=== PATIENT | female | born 2005 | race Caucasian/White ===

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

== ENCOUNTER 2025-03-23 15:36 | Outpatient (REF) | payer MEDICAID, SELFPAY ==
--- NOTE | ~2025-03-23 | XR_ITS ---
EXAMINATION: XR FOOT, RIGHT CLINICAL INFORMATION: stubbed right 5th digit 4 days ago with swelling and pain of entire digit COMPARISON: None available. TECHNIQUE: AP, lateral, and oblique views of the right foot. FINDINGS: There is an intra-articular fracture involving the head of the fifth proximal phalanx extending to the medial metaphysis. There is a small gap at the articular surface.. No other abnormalities are apparent. XR/XR foot RT min 3V IMPRESSION: Acute intra-articular fracture of the head of the fifth proximal phalanx extending to the medial metaphysis. There is a 1-2 mm gap at the articular surface Electronically signed by: Scooter Samuels MD 03/23/2025 04:11 PM EDT
--- OUTSIDE RECORDS SUMMARY | 2025-03-23 15:00 | XMS_ITS | Encounter Summary ---
Author Organization [employer] Address [address] [place] [address] Care Team Providers Care Fabrication Welder Name Role Phone Shae Shania SUGGS Primary Care Provider [phone] Reason for Visit * Reason Comments Toe Pain Encounter Details Date Type Department Care Team (Late st Contact Info) Description 03/23/2025 3:00 PM EDT Office Visit [facility] [address] [place] [address] Lucia Rayo MD [address] [place] [address] Injury of toe on right foot, initial encounter (Primary Dx) Social History Tobacco Use Types Packs/Day Years Used Date Smoking Tobacco: Never Smokeless Tobacco: Never Alcohol Use Standard Drinks/Week Comments Never 0 (1 standard drink = 0.6 oz pur e alcohol) Depression Answer Date Recorded Patient Health Questionnaire-9 Score 5 12/12/2022 Housing Stability Answer Date Recorded What is your housing situation today? I have faviola brown 05/18/[address] you li ve. Do you have problems with any of the following? None of the above 05/18/2023 Food Insecurity Answer Date Recorded Within the past 12 months, y ou worried that your food would run out before you got money to buy more: Never True 05/18/2023 Within the past 12 months,th e food you bought just didn't last and you didn't have enough money to get more: Never True 12/2022 Transportation Answer Date Recorded In the past 12 months, has l ack of transportation kept you from medical appts, meetings, work or from getting things needed for daily living? No 05/18/2023 Utilities Answer Date Recorded In the past 12 months, has t he electric, gas, oil or water company threatened to shut off services in your home? No 05/18/2023 Depression Answer Date Recorded Patient Health Questionnaire-2 Score 1 12/12/2022 Comments No Sex and Gender Information Value Date Recorded Sex Assigned at Female 05/12/2022 10:20 AM EDT Legal Sex Female 10:20 AM EDT Gender Identity Female 05/12/2022 10:20 AM EDT Sexual Orientation Straight 05/12/2022 10 :20 AM EDT documented as of this encounter Last Filed Vital Signs Vital Sign Reading Time Taken Comments Blood Pressure 109/69 03/23/2025 3:15 PM EDT Pulse 78 03/23/2025 3:15 PM EDT Temperature 36.2 C (97.2 F) 03/23/2025 3:15 PM EDT Respiratory Rate 18 03/23/2025 3:15 PM EDT Oxygen Saturation 99% 03/23/2025 3:15 PM EDT Inhaled Oxygen Concentration - - Weight 69 kg (152 lb 3.2 oz) 03/23/2025 3:15 PM EDT Height - - Body Mass Index 25.33 03/17/2024 11:17 AM EDT documented in this encounter Progress Notes * Lucia Rayo MD - 03/23/2025 3:00 PM EDT Images from the original note were not included. Subjective Patient ID: Saran Gordon is a 20 y.o. female who presents to walk in clinic for tow pain. She was running around in her house playfully 4 days ago when her foot kicked a box. She had pain at the 5th toe and it has continued to be painful and unable to flex. She worked yesterday ([employer]) where she has to wear closed tow shoes. Review of Systems Constitutional: Negative for fatigue. Objective Visit Vitals BP 109/69 (BP Location: Left arm, Patient Position: Sitting, BP Cuff Size: Adult) Pulse 78 Temp 97.2 ??F (36.2 ??C) (Temporal) Resp 18 Body mass index is 25.33 kg/m??. Physical Exam Musculoskeletal: Legs: Comments: Right 5th digit with pain over digit, mind swelling, unable to flex due to swelling, no warmth. Assessment & Plan Injury of toe on right foot, initial encounter Suspect fracture vs sprain. Will obtain x ray (denies possibility of ). No dexter taping indicated given this would pull her toe out of alignment and it is well aligned on exam. Acetaminophenprn pain. Work not for 1 week given as recommend no closed shoes and ambulate only as tolerated. Advised to call if she needs note extended. She agrees with the plan. Orders: XR Foot 3+ Views Right; Future Acetaminophen 500 MG capsule; Take 1 capsule (500 mg) by mouth every 8 (eight) hours if needed for moderate pain or fever. Future Appointments Date Time Provider Department Center 03/27/2025 11:30 AM Ashley Escamilla CNM MEDICINE [facility] documented in this encounter Plan of Treatment Upcoming Encounters Date Type Department Care Team (Late st Contact Info) Description 03/27/2025 11:30 AM EDT Office Visit [facility] [address] [place] [phone] Ashley Escamilla CNM [address] [place] [address] documented as of this encounter Procedures Procedure Name Priority Date/Time Associated Diagnosis Comments XR FOOT 3+ VIEWS RIGHT Routine 03/23/2025 4:06 PM EDT Injury of toe on right foot, initial encounter documented in this encounter Results * XR Foot 3+ Views Right (03/23/2025 4:06 PM EDT) Anatomical Region Laterality Modality Lower Extremities, Foot Right [facility]iogra [facility] 03/23/2025 4:06 PM EDT Narrative 03/23/2025 4:15 PM EDT [address] [address] XRay Report Signed Patient: Saran Gordon MR#: [id number] : 2005 Acct:[id number] Age/Sex: 20 / F ADM Date: 03/23/25 [facility] Att[facility]: Lucia Rayo MD Ordering Physician: Lucia Rayo MD Date of Service: 03/23/25 Procedure(s): XR foot RT min 3V Accession Number(s): [id number] cc: Lucia Rayo MD Reason for Exam: stubbed right 5th digit 4 days ago with swelling and pain of entire digit EXAMINATION: XR FOOT, RIGHT CLINICAL INFORMATION: stubbed right 5th digit 4 days ago with swelling and pain of entire digit COMPARISON: None available. TECHNIQUE: AP, lateral, and oblique views of the right foot. FINDINGS: There is an intra-articular fracture involving the head of the fifth proximal phalanx extending to the medial metaphysis. There is a small gap at the articular surface.. No other abnormalities are apparent. XR/XR foot RT min 3V IMPRESSION: Acute intra-articular fracture of the head of the fifth proximal phalanx extending to the medial metaphysis. There is a 1-2 mm gap at the articular surface Electronically signed by: Scooter Samuels MD 03/23/2025 04:11 PM EDT Dictated By: Scooter Samuels MD Signed By: <Electronically signed by Scooter Samuels MD in OV> 03/23/25 1611 DD/ 1606 TD/TT: 03/23/25 1607 Manager Leasing: Procedure Note Donotalinterpreter, Image - 03/23/[address] [address] XRay Report Signed Patient: aSran GordonMR#: [id number] : 2005Acct:[id number] Age/Sex: 20 / FADM Date: 03/23/25 Loc: HO.[facility] Attending Dr: Lucia Rayo MD Ordering Physician: Lucia Rayo MD Date of Service: 03/23/25 Procedure(s): XR foot RT min 3V Accession Number(s): [id number] cc: Lucia Rayo MD Reason for Exam: stubbed right 5th digit 4 days ago with swelling andpain of entire digit EXAMINATION: XR FOOT, RIGHT CLINICAL INFORMATION: stubbed right 5th digit 4 days ago with swelling and pain of entire digit COMPARISON: None available. TECHNIQUE: AP, lateral, and oblique views of the right foot. FINDINGS: There is an intra-articular fracture involving the head of the fifth proximal phalanx extending to the medial metaphysis. There is a small gap at the articular surface.. No other abnormalities are apparent. XR/XR foot RT min 3V IMPRESSION: Acute intra-articular fracture of the head of the fifth proximal phalanx extending to the medial metaphysis. There is a 1-2 mm gap at the articular surface Electronically signed by: Scooter Samuels MD 03/23/2025 04:11 PM EDT RP Dictated By: Scooter Samuels MD Signed By: <Electronically signed by Scooter Samuels MD in OV> 03/23/25 1611 DD/ 1606 TD/TT: 03/23/25 1607 Manager Leasing: Lucia Rayo MD IMG XR PROCEDURES Final Re sult documented in this encounter Visit Diagnoses Diagnosis Injury of toe on right foot, initial encounter- Primary documented in this encounter Additional Health Concerns Assessment Noted Time PHQ-9 Depression Total Score: 5 12/13/19 23 1:45 PM EDT documented as of this encounter Care Teams Fabrication Welder Relationship Specialty Start Date End Date Shania Kaufman ANP [address] [place] [phone] PCP - General Family Medicine 07/19/20 documented as of this encounter
--- OUTSIDE RECORDS SUMMARY | 2025-03-23 18:43 | XMS_ITS | Encounter Summary ---
Author Organization [employer] Address [address] [facility] [address] [place] [address] Care Team Providers Care Food Editor Name Role Phone Shania Kaufman Primary Care Provider [phone] Reason for Visit * Reason Comments Med Refill Encounter Details Date Type Department Care Team ([facility] st Contact Info) Description 01/26/2025 Refill [facility] [address] [place] [address] Shania Kaufman ANP [address] [place], [place] [phone] Social History Tobacco Use Types Packs/Day Years [...] AM EDT documented as of this encounter Plan of Treatment Upcoming Encounters Date Type Department Care Team (Late st Contact Info) Description 03/27/2025 11:30 AM EDT Office Visit [facility] [address] [place] [address] Ashley Escamilla CNM [address] [place] [address] documented as of this encounter Visit Diagnoses Not on filedocumented in this encounter Additional Health Concerns Assessment Noted Time PHQ-9 Depression Total Score: 5 12/13/19 23 1:45 PM EDT documented as of this encounter Care Teams Food Editor Relationship Specialty Start Date End Date Shania Kaufman ANP [address] [place] [address] PCP - General Family Medicine 07/19/20 documented as of this encounter
--- OUTSIDE RECORDS SUMMARY | 2025-03-23 18:43 | XMS_ITS | Encounter Summary ---
Author Organization [employer] Address [address] [facility] 7[address] [place] [address] Care Team Providers Care Corn Sheller Operator Name Role Phone Shania Kaufman ES Primary Care Provider [phone] Reason for Visit * Reason Onset Date Comments Med Refill 08/11/2024 Encounter Details Date Type Department Care Team (Late st Contact Info) Description 08/11/2024 Refill [facility] [address] [place] [address] Ashley Escamilla, [facility] [address] [place], [place] [phone] Social History Tobacco Use Types Packs/Day Years [...] Description 03/27/2025 11:30 AM EDT Office Visit [facility] [address] [place] [address] Ashley Escamilla CNM [address] [place] [address] documented as of this encounter Visit Diagnoses Not on filedocumented in this encounter Additional Health Concerns Assessment Noted Time PHQ-9 Depression Total Score: 5 12/13/19 23 1:45 PM EDT documented as of this encounter Care Teams Corn Sheller Operator Relationship Specialty Start Date End Date Shania Kaufman ANP [address] [place] [phone] PCP - General Family Medicine 07/19/20 documented as of this encounter
--- OUTSIDE RECORDS SUMMARY | 2025-03-23 18:43 | XMS_ITS | Encounter Summary ---
Author Organization [employer] Address [address] [facility] 7 [place] [address] Care Team Providers Care Associate Editor Name Role Phone Ramesh Talamantes ES Primary Care Provider [phone] Reason for Referral * Imaging (Urgent) - Closed Specialty Diagnoses / Procedures Referred By Contac t Referred To Contact Radiology Diagnoses Irregular menses Procedures US Pelvis Transvaginal Ashley Sharp CNM [address] [place] [address] Phone: tel: fax: [address] Phone: tel: fax: Referral ID Status Reason Start Date Expiration Date Visits Re quested Visits Authorized [id number] Closed 08/18/2023 08/17/2024 1 1 * Imaging (Urgent) - Closed Specialty Diagnoses / Procedures Referred By Contac t Referred To Contact Radiology Diagnoses Irregular menses Procedures Us Pelvis complete Ashley Sharp CNM [address] [place] [address] Phone: tel: fax: [address] Phone: tel: fax: Referral ID Status Reason Start Date Expiration Date Visits Re quested Visits Authorized [id number] Closed 08/18/2023 08/17/2024 1 1 Encounter Details Date Type Department Care Team (Late st Contact Info) Description 08/18/2023 Orders Only [facility] [address] [place] [address] Ashley Sharp CNM [address] [place] [address] Irregular menses (Primary Dx) Social History Tobacco Use Types [...] AM EDT documented as of this encounter Miscellaneous Notes * Result Encounter Note - Ashley Sharp CNM - 08/18/2023 8:17 AM EST Please let Saran know her pelvic ultrasound showed the lining of her uterus is a little thicker/irregular than expected. When was the first day of her last period? Depending on when it was, I might want to have further testing done to evaluate the lining of her uterus. If she hasn't had a periodin a few months, I want to give some medication to bring it on (as discussed in 08/27 telephone message). Please ask if she has been sexually active since 07/2023. If so, will need test if norecent normal menses. She is welcome to make an appt with me to discuss all this further if that iseasiest. Thanks! * Result Encounter Note - Ashley Sharp CNM - 08/18/2023 8:17 AM EST Could you see if Saran has pelvic ultrasound appointment this week or last week? I don't need results from 09/10, already have that. Thanks! documented in this encounter Plan of Treatment Upcoming Encounters Date Type Department Care Team (Late st Contact Info) Description 03/27/2025 11:30 AM EDT Office Visit [facility] [address] [place] [address] Ashley Sharp CNM [address] [place] [address] Scheduled Orders Name Type Priority Associated Diagnoses Orde r Schedule Us Pelvis complete Imaging Urgent Irregular menses Expected: 08/18/2023, Expires: 08/18/2024 documented as of this encounter Procedures Procedure Name Priority Date/Time Associated Diagnosis Comments US PELVIS TRANSVAGINAL Urgent 09/11/2023 12:15 PM EST Irregular menses documented in this encounter Results * US Pelvis Transvaginal (09/11/2023 12:15 PM EST) Anatomical Region Laterality Modality Pelvis Ultrasound 09/11/2023 12:1 5 PM EST Narrative 09/11/2023 3:14 PM EST [address] [address] Ultrasound Report Signed Patient: Saran Gordon MR#: [id number] : 2005 Acct:[id number] Age/Sex: 18 / F ADM Date: 09/11/23 Loc: HO.US Attending Dr: Ashley Sharp CNM Ordering Physician: ASHLEY SHARP CNM Date of Service: 09/11/23 Procedure(s): US pelvic and transvaginal Accession Number(s): [id number] cc: ASHLEY SHARP CNM; RAMESH TALAMANTES NP EXAMINATION: US PELVIS CLINICAL INFORMATION: Irregular menses. COMPARISON: None available. TECHNIQUE: Ultrasound of the pelvis is performed using both transabdominal and transvaginal transducers along with Doppler. Transvaginal imaging is performed due to inadequate visualization transabdominally. FINDINGS: Uterus: The uterus is anteverted and measures 5.7 cm in length, 2.9 cm in AP and 3.1 cm in transverse dimension. The double wall endometrium is heterogeneous, thickened measuring 1.2 cm with small cystic areas. The uterus is smooth in contour and has normal myometrial echogenicity. No visible fibroid. There are small nabothian cysts seen in cervix. Adnexa: Both ovaries are visualized. There is normal color flow to the adnexa. There is no ovarian torsion. There is no pelvic ascites or fluid collection. Right ovary measures 3.1 x 2.1 x 2.6 cm and volume 8.9 mL. There are small follicular cysts. Left ovary measures 2.9 x 1.8 x 2.5 cm and volume 6.8 mL. There are small follicular cysts. There is small amount of free fluid in the cul-de-sac. US/US pelvic and transvaginal IMPRESSION: Unremarkable uterus except for thickened endometrium with some cystic areas. Thickened endometrium with cystic areas. Ovaries unremarkable. Small amount of free fluid in pelvis likely physiological. Dictated By: Kayode Barrera MD Signed By: <Electronically signed by Kayode Barrera MD in OV> 09/11/23 1511 DD/ 1215 TD/TT: Director Orange: BRAYDON Procedure Note Donotuseinterpreter, Image - 09/11/2023 [place] [address] Ultrasound Report Signed Patient: Saran GordonMR#: [id number] : 2005Acct:[id number] Age/Sex: 18 / FADM Date: 09/11/23 Loc: HO.US Attending Dr: Ashley Sharp CNM Ordering Physician: ASHLEY SHARP CNM Date of Service: 09/11/23 Procedure(s): US pelvic and transvaginal Accession Number(s): [id number] cc: ASHLEY SHARP CNM; RAMESH TALAMANTES NP EXAMINATION: US PELVIS CLINICAL INFORMATION: Irregular menses. COMPARISON: None available. TECHNIQUE: Ultrasound of the pelvis is performed using both transabdominal and transvaginal transducers along with Doppler. Transvaginal imaging is performed due to inadequate visualization transabdominally. FINDINGS: Uterus: The uterus is anteverted and measures 5.7 cm in length, 2.9 cm in AP and 3.1 cm in transverse dimension. The double wall endometrium is heterogeneous, thickened measuring 1.2 cm with small cystic areas. The uterus is smooth in contour and has normal myometrial echogenicity. No visible fibroid. There are small nabothian cysts seen in cervix. Adnexa: Both ovaries are visualized. There is normal color flow to the adnexa. There is no ovarian torsion. There is no pelvic ascites or fluid collection. Right ovary measures 3.1 x 2.1 x 2.6 cm and volume 8.9 mL. There are small follicular cysts. Left ovary measures 2.9 x 1.8 x 2.5 cm and volume 6.8 mL. There are small follicular cysts. There is small amount of free fluid in the cul-de-sac. US/US pelvic and transvaginal IMPRESSION: Unremarkable uterus except for thickened endometrium with some cystic areas. Thickened endometrium with cystic areas. Ovaries unremarkable. Small amount of free fluid in pelvis likely physiological. Dictated By: Kayode Barrera MD Signed By: <Electronically signed by Kayode Barrera MD in OV> 09/11/23 1511 DD/ 1215 TD/TT: Director Orange: BRAYDON us Ashley Sharp CNM IMG US PROCEDURES Final R esult documented in this encounter Visit Diagnoses Diagnosis Irregular menses- Primary Irregular menstrual cycle documented in this encounter Additional Health Concerns Assessment Noted Time PHQ-9 Depression Total Score: 5 12/13/19 23 1:45 PM EDT documented as of this encounter Care Teams Associate Editor Relationship Specialty Start Date End Date Ramesh Talamantes ANP [address] [place] [address] PCP - General Family Medicine 07/19/20 documented as of this encounter
--- OUTSIDE RECORDS SUMMARY | 2025-03-23 18:43 | XMS_ITS | Encounter Summary ---
Author Organization [employer] Address [address] [facility] [address] [place] [address] Care Team Providers Care Medical Physicist Name Role Phone Shania Kaufman ES Primary Care Provider [phone] Encounter Details Date Type Department Care Team (Latest Contact Info) Description 03/20/2025 Travel Social History Tobacco Use Types Packs/Day Years [...] Description 03/27/2025 11:30 AM EDT Office Visit [facility] [address] [place] [address] Ashley Escamilla CNM [address] [place] [address] documented as of this encounter Visit Diagnoses Not on filedocumented in this encounter Additional Health Concerns Assessment Noted Time PHQ-9 Depression Total Score: 5 12/13/19 23 1:45 PM EDT documented as of this encounter Care Teams Medical Physicist Relationship Specialty Start Date End Date Shania Kaufman ANP [address] [place] [address] PCP - General Family Medicine 07/19/20 documented as of this encounter
--- OUTSIDE RECORDS SUMMARY | 2025-03-23 18:43 | XMS_ITS | Encounter Summary ---
Author Organization [employer] Address [address] [facility] 7t [place] [address] Care Team Providers Care Administrative Support Clerk Name Role Phone Shania Kaufman ES Primary Care Provider [phone] Reason for Visit * Reason Onset Date Comments Med Refill 11/04/2024 Encounter Details Date Type Department Care Team (Late st Contact Info) Description 11/04/2024 Refill [facility] [address] [place] [address] Ashley Escamilla, [facility] [address] [place], [place] [phone] Social History Tobacco Use Types Packs/Day Years [...] Description 03/27/2025 11:30 AM EDT Office Visit [facility] [address] [place] [address] Ashley Escamilla CNM [address] [place] [address] documented as of this encounter Visit Diagnoses Not on filedocumented in this encounter Additional Health Concerns Assessment Noted Time PHQ-9 Depression Total Score: 5 12/13/19 23 1:45 PM EDT documented as of this encounter Care Teams Administrative Support Clerk Relationship Specialty Start Date End Date Shania Kaufman ANP [address] [place] [address] PCP - General Family Medicine 07/19/20 documented as of this encounter
--- OUTSIDE RECORDS SUMMARY | 2025-03-23 18:43 | XMS_ITS | Clinical Summary ---
Author Organization [employer] Address [address] [facility] [address] [place] [address] Care Team Providers Care Brush Washer Name Role Phone Shania Kaufman Primary Care Provider [phone] Allergies Active Allergy Reactions Criticality Noted Date Comments Pollen Extract 08/12/2023 Medications cromolyn (Opticrom) 4 % ophthalmic solution PLACE 1 DROP INTO THE AFFECTED EYE(S) FOUR TIMES DAILY 06/16/20 22 Active cetirizine (ZyrTEC) 10 MG tablet Take 1 tablet (10 mg) by mouth Once per day. 90 tablet 1 11/17/19 24 Active Slynd 4 MG tablet TAKE 1 TABLET BY MOUTH ONCE DAILY 84 tablet 01/21/20 25 Active Acetaminophen 500 MG capsuleIndicati ons:Injury of toe on right foot, initial encounter Take 1 capsule (500 mg) by mouth every 8 (eight) hours if needed for moderate pain or fever. 30 capsule 03/23/20 25 025 Active ofloxacin (Floxin) 0.3 % otic solutionIndicat ions:Otitis externa, unspecified chronicity, unspecified laterality, unspecified type 5 drops to R ear canal BID x 7 days 10 mL 02/23/20 24 025 Discontinued Active Problems Problem Noted Date Diagnosed Date Sleep difficulties 09/15/2022 Behavior concern 07/22/2016 Eczema 07/22/2016 Asthma 11/22/2012 Seasonal allergic rhinitis 08/23/2012 Encounters Date Type Department Care Team Description 03/23/2025 3:00 PM EDT Office Visit [facility] [address] [place] [address] Lucia Rayo MD Injury of toe on right foot, initial encounter (Primary Dx) 03/23/2025 Travel 03/20/2025 Travel 01/26/2025 Telephone [facility] [address] [place] [address] Shania Kaufman ANP Results 01/26/2025 Refill [facility] [address] [place] [address] Shania Kaufman ANP 01/23/2025 Telephone [facility] [address] [place] [address] Ashley Escamilla CNM Appointment Request 01/20/2025 Refill [facility] [address] [place] [address] Ashley Escamilla CNM from Last 3 Months Immunizations Immunization Administration Dates Next Due DTP 09/22/2007, 7,01/15/2006,08/07 DTaP 11/22/2009 HPV 9-Valent 03/24/2017,07/22/2016 Hep A, ped/adol, 2 dose 03/22/2008,09/22/2007 Hep B, Adolescent or Pediatric 09/16/2006,2005,2005 Hib (HbOC) 09/22/2007,01/15/2007,09/11/2006 IPV 11/22/2009, 7,01/15/2006,08/07 Influenza injectable quadriv alent preservative free 04/11/2022,04/11/2022,07/23/2020,07/22,07/20/2015,05/31/2014 Influenza, IIV3, injectable 03/23/2011 Influenza, Split (incl. cherri fied surface antigen) 04/07/2013 MMR 11/22/2009,09/11/2006 Meningococcal MCV4P [id number]-135 07/22/2016 Pfizer Covid-19 Vaccine 12+ 04/23/2021, Pneumococcal Conjugate PCV 7 09/11/2006,01/16/20 06 Tdap 07/22/2016 Varicella 11/22/2009,09/11/2006 Social History Tobacco Use Types Packs/Day Years Used Date Smoking Tobacco: Never Smokeless Tobacco: Never Tobacco Cessation:Counseling Given: Not Answered Alcohol Use Standard Drinks/Week Comments Never 0 [...] Orientation Straight 05/12/2022 10 :20 AM EDT Last Filed Vital Signs Vital Sign Reading Time Taken Comments Blood Pressure 109/69 03/23/2025 3:15 PM EDT Pulse 78 03/23/2025 3:15 PM EDT Temperature 36.2 C (97.2 F) 03/23/2025 3:15 PM EDT Respiratory Rate 18 03/23/2025 3:15 PM EDT Oxygen Saturation 99% 03/23/2025 3:15 PM EDT Inhaled Oxygen Concentration - - Weight 69 kg (152 lb 3.2 oz) 03/23/2025 3:15 PM EDT Height 165.1 cm (5' 5 ) 03/17/2024 11:17 AM EDT Body Mass Index 25.33 03/17/2024 11:17 AM EDT Plan of Treatment Upcoming Encounters Date Type Department Care Team (Late st Contact Info) Description 03/27/2025 11:30 AM EDT Office Visit [facility] [address] [place] [address] FrancineAshley, CNM [address] [place] [address] Health Maintenance Due Date Last Done Comments Chlamydia and Gonorrhea Screening 2005 HIV Screening 2005 Alcohol/Substance Use Screening 2017 Family Planning (PISQ) 02/26/2020 Meningococcal B Vaccine (1 of 2 - Standard) 2021 Hepatitis C Screening 2023 Depression Screening 12/13/2023 12/12/2022, 12/13/19 23 SDOH Screening 12/13/2023 12/12/2022 Pneumococcal Vaccine: Pediatrics (0 to 5 Years) and At-Risk Patients (6 to 49) Years (1 of 2 - PCV) 02/26/2024 09/11/2006, 01/15/2006 COVID-19 Vaccine (3 - season) 2025 04/23/2021, 04/02/2021 Influenza Vaccine (#1) 2025 , 04/11/2022, 07/23/2020, Additional history exists Tobacco Screening 03/17/2025 03/17/2024 Disability Screening 03/20/2026 03/20/2025 DTaP/Tdap/Td Vaccines (7 - Td or Tdap) 07/22/2026 07/22/2016, 11/22/2009, 09/22/2007, Additional history exists Zoster Vaccines (1 of 2) 2055 RSV Patients and Patients Aged 60 years or older (1 - 1-dose 75+ series) 02/26/2080 Hepatitis B Vaccines Completed 09/16/2006, 01/15/2006, 2005 HIB Vaccines Completed 09/22/2007, 12/2006, 09/11/2006 Hepatitis A Vaccines Completed 03/22/2008, 09/22/19 08 IPV Vaccines Completed 11/22/2009, 08/2006, 01/15/2006, Additional history exists Meningococcal Vaccine Aged Out 07/22/2016 No rosa emilio eligible based on patient's age to complete this topic HPV Vaccines Completed 03/24/2017, 07/22/2016 RSV under 20 months Aged Out No longe r eligible based on patient's age to complete this topic Rotavirus Vaccines Aged Out No longer eligible based on patient's age to complete this topic Procedures Procedure Name Priority Date/Time Associated Diagnosis Comments XR FOOT 3+ VIEWS RIGHT Routine 03/23/2025 4:06 PM EDT Injury of toe on right foot, initial encounter from Last 3 Months Results * XR Foot 3+ Views Right (03/23/2025 4:06 PM EDT) Anatomical Region Laterality Modality Lower Extremities, Foot Right Radiogra phic Imaging 03/23/2025 4:06 PM EDT Narrative 03/23/2025 4:15 PM EDT [address] [address] XRay Report Signed Patient: Saran Gordon MR#: [id number] : 2005 Acct:[id number] Age/Sex: 20 / F ADM Date: 03/23/25 Loc: HO.HHCX Attending Dr: Lucia Rayo MD Ordering Physician: Lucia Rayo MD Date of Service: 03/23/25 Procedure(s): XR foot RT min 3V Accession Number(s): [id number] cc: Lucia Rayo MD Reason for Exam: [...] 03/23/25 1611 DD/ 1606 TD/TT: 03/23/25 1607 Coding Consultant: Procedure Note Donotuseinterpreter, Image - 03/23/[address] [address] XRay Report Signed Patient: Saran GordonMR#: [id number] : 2005Acct:[id number] Age/Sex: 20 FADM Date: 03/23/25 Loc: HO.HHCX Attending Dr: Lucia Rayo MD Ordering Physician: Lucia Rayo MD Date of Service: 03/23/25 Procedure(s): XR foot RT min 3V Accession Number(s): [id number] cc: Lucia Rayo MD Reason for Exam: [...] 03/23/25 1611 DD/ 1606 TD/TT: 03/23/25 1607 Coding Consultant: Lucia Rayo MD IMG XR PROCEDURES Final Re sult from Last 3 Months Insurance [email or web address] [facility] Care Teams Brush Washer Relationship Specialty Start Date End Date Shania Kaufman ANP [address] [place] [address] PCP - General Family Medicine 07/19/20
--- OUTSIDE RECORDS SUMMARY | 2025-03-23 18:43 | XMS_ITS | Encounter Summary ---
Author Organization [employer] Address [address] [facility] 7t [place] [address] Care Team Providers Care Party Supply Specialist Name Role Phone Shania Kaufman ES Primary Care Provider [phone] Reason for Visit * Reason Onset Date Comments Med Refill 04/19/2024 Encounter Details Date Type Department Care Team (Late st Contact Info) Description 04/19/2024 Refill [facility] [address] [place] [address] Ashley Escamilla, RAFAEL [address] [place], [place] [phone] Social History Tobacco Use Types Packs/Day Years [...] Description 03/27/2025 11:30 AM EDT Office Visit [facility] [address] [place] [address] Ashley Escamilla CNM [address] [place] [address] documented as of this encounter Visit Diagnoses Not on filedocumented in this encounter Additional Health Concerns Assessment Noted Time PHQ-9 Depression Total Score: 5 12/13/19 23 1:45 PM EDT documented as of this encounter Care Teams Party Supply Specialist Relationship Specialty Start Date End Date Shania Kaufman ANP [address] [place] [address] PCP - General Family Medicine 07/19/20 documented as of this encounter
--- OUTSIDE RECORDS SUMMARY | 2025-03-23 18:43 | XMS_ITS | Encounter Summary ---
Author Organization [employer] Address [address] [facility] [address] [place] [address] Care Team Providers Care Air Surveillance Operator Name Role Phone Shania Kaufman ES Primary Care Provider [phone] Encounter Details Date Type Department Care Team (Latest Contact Info) Description 03/23/2025 Travel Social History Tobacco Use Types Packs/Day [...] Description 03/27/2025 11:30 AM EDT Office Visit [facility] [address] [place] [address] Ashley Escamilla CNM [address] [place] [address] documented as of this encounter Visit Diagnoses Not on filedocumented in this encounter Additional Health Concerns Assessment Noted Time PHQ-9 Depression Total Score: 5 12/13/19 23 1:45 PM EDT documented as of this encounter Care Teams Air Surveillance Operator Relationship Specialty Start Date End Date Shania Kaufman ANP [address] [place] [address] PCP - General Family Medicine 07/19/20 documented as of this encounter
--- OUTSIDE RECORDS SUMMARY | 2025-03-23 18:43 | XMS_ITS | Encounter Summary ---
Author Organization [employer] Address [address] [facility] 7t [place] [address] Care Team Providers Care Daycare Director Name Role Phone Shania Kaufman ES Primary Care Provider [phone] Reason for Visit * Reason Onset Date Comments Med Refill 05/17/2024 Encounter Details Date Type Department Care Team (Late st Contact Info) Description 05/17/2024 Refill [facility] [address] [place] [address] Ashley Escamilla, RAFAEL [address] [place], [place] [phone] Social History Tobacco Use Types Packs/Day Years [...] Description 03/27/2025 11:30 AM EDT Office Visit [facility] [address] [place] [address] Ashley Escamilla CNM [address] [place] [address] documented as of this encounter Visit Diagnoses Not on filedocumented in this encounter Additional Health Concerns Assessment Noted Time PHQ-9 Depression Total Score: 5 12/13/19 23 1:45 PM EDT documented as of this encounter Care Teams Daycare Director Relationship Specialty Start Date End Date Shania Kaufman ANP [address] [place] [address] PCP - General Family Medicine 07/19/20 documented as of this encounter
== END 2025-03-23 15:37 | disposition home or self-care (01) ==
LOC: HO.HHCX 15:36
PROVIDERS: Visit Provider Family Medicine
DX: S99.921A Unspecified injury of right foot, initial encounter (principal)
CPT/HCPCS: 73630

== ENCOUNTER → 2025-03-23 15:37 | Outpatient (BNV) | payer MEDICAID, SELFPAY | PROVIDERS: Visit Provider Radiology Diagnostic Radiology | DX: S92.511A Displaced fracture of proximal phalanx of right lesser toe(s), initial encounter for closed fracture (principal) | CPT/HCPCS: 73630 ==

== ENCOUNTER 2025-03-27 17:45 | Outpatient (REF) | payer MEDICAID, SELFPAY ==
--- OUTSIDE RECORDS SUMMARY | 2025-03-23 15:00 | XMS_ITS | Encounter Summary ---
Author Organization [employer] Address [address] [place] [address] Care Team Providers Care Supervisor Broadloom Name Role Phone Shae Shania SUGGS Primary Care Provider [phone] Reason for Referral * Consultation (STAT) - Authorized Specialty Diagnoses / Procedures Referred By Contac t Referred To Contact Orthopaedic Surgery Diagnoses Closed fracture of proximal phalanx of lesser toe of right foot, physeal involvement unspecified, initial encounter Lucia Young MD [address] [place] [address] Phone: tel: fax: [facility] [address] [place] [address] Phone: tel: Referral ID Status Reason Start Date Expiration Date Visits Requested Visits Authorized [id number] Authorized Specialty Services Required 03/24/2025 03/24/2026 6 6 Reason for Visit * Reason Comments Toe Pain Encounter Details Date Type Department Care Team (Late st Contact Info) Description 03/23/2025 3:00 PM EDT Office Visit [facility] [address] [place] [phone] Lucia Young MD [address] [place] [phone] Closed fracture of proximal phalanx of lesser toe of right foot, physeal involvement unspecified, initial encounter (Primary Dx); Injury of toe on right foot, initial encounter Social History Tobacco Use Types Packs/Day Years [...] in this encounter Progress Notes * Lucia Young MD - 03/23/2025 3:00 PM EDT Images [...] and unable to flex. She worked yesterday ([employer]) where she has to wear closed tow [...] if needed for moderate pain or fever. Closed fracture of proximal phalanx of lesser toe of right foot, physeal involvement unspecified, initial encounter Orders: Referral to Orthopaedic Surgery; Future Addendum XR/XR foot RT min 3V IMPRESSION: Acute intra-articular fracture of the head of the fifth proximal phalanx extending to the medial metaphysis. There is a 1-2 mm gap at the articular surface Referral to ortho placed 03/24/25 Future Appointments Date Time Provider Department Center 03/27/2025 11:30 AM Ashley Escamilla CNM MEDICINE [facility] documented in this encounter Miscellaneous Notes * Addendum Note - Lucia Young MD - 03/23/2025 3:00 PM EDTAddended by: LUCIA YOUNG on: 03/24/2025 11:18 AM Modules accepted: Orders documented in this encounter Plan of Treatment Scheduled Referrals Name Type Priority Associated Diagnoses Orde r Schedule Referral to Orthopaedic Surgery Outpatient Referral STAT Closed fracture of proximal phalanx of lesser toe of right foot, physeal involvement unspecified, initial encounter Expected: 03/24/2025 (Approximate), Expires: 03/24/2026 documented as of this encounter Procedures Procedure Name Priority Date/Time Associated Diagnosis Comments XR FOOT 3+ VIEWS RIGHT Routine 03/23/2025 4:06 PM EDT Injury of toe on right foot, initial encounter documented in this encounter Results * XR Foot 3+ Views Right (03/23/2025 4:06 PM EDT) Anatomical Region Laterality Modality Lower Extremities, Foot Right Radiogra phic Imaging 03/23/2025 4:06 PM EDT Narrative 03/23/2025 4:15 [place] [address] XRay Report Signed Patient: Saran Gordon MR#: [id number] : 2005 Acct:[id number] Age/Sex: 20 / F ADM Date: 03/23/25 [facility]: Lucia Young MD Ordering Physician: Lucia Young MD Date of Service: 03/23/25 Procedure(s): XR foot RT min 3V Accession Number(s): [id number] cc: Lucia Young MD Reason for Exam: stubbed right 5th [...] 03/23/25 1611 DD/ 1606 TD/TT: 03/23/25 1607 Bulk Plant Agent: Procedure Note Donotuseinterpreter, Image - 03/23/[address] [address] XRay Report Signed Patient: Saran GordonMR#: [id number] : 2005Acct:[id number] Age/Sex: 20 / FADM Date: 03/23/25 Loc: HO.[facility] Attending Dr: Lucia Young MD Ordering Physician: Lucia Young MD Date of Service: 03/23/25 Procedure(s): XR foot RT min 3V Accession Number(s): [id number] cc: Lucia Young MD Reason for Exam: stubbed right 5th [...] 03/23/25 1611 DD/ 1606 TD/TT: 03/23/25 1607 Bulk Plant Agent: Lucia Young MD IMG XR PROCEDURES Final Re sult documented in this encounter Visit Diagnoses Diagnosis Closed fracture of proximal phalanx of lesser toe of right foot, physeal involvement unspecified, initial encounter- Primary Injury of toe on right foot, initial encounter documented in this encounter Additional Health Concerns Assessment Noted Time PHQ-9 Depression Total Score: 5 12/13/19 23 1:45 PM EDT documented as of this encounter Care Teams Supervisor Broadloom Relationship Specialty Start Date End Date Shania Kaufman ANP [address] [place] [address] PCP - General Family Medicine 07/19/20 documented as of this encounter
--- OUTSIDE RECORDS SUMMARY | 2025-03-27 11:30 | XMS_ITS | Encounter Summary ---
Author Organization [employer] Address [address] [facility] [address] [place] [address] Care Team Providers Care Resolution Manager Name Role Phone Shania Kaufman ES Primary Care Provider [phone] Reason for Visit * Reason Comments Follow-up Encounter Details Date Type Department Care Team (Latest Contact Info) Description 03/27/2025 11:30 AM EDT Office Visit [facility] MED[facility]INE [address] [place] [address] Ashley Escamilla CN [address] [place], [place] [phone] Surveillance of previously prescribed contraceptive pill (Primary Dx); Encntr screen for infections w sexl mode of transmiss Social History Tobacco Use Types Packs/Day Years Used Date Smoking Tobacco: Never Smokeless Tobacco: Never Alcohol Use Standard Drinks/Week Comments Never 0 (1 standard drink = 0.6 oz pur e alcohol) Depression Answer Date Recorded Patient Health Questionnaire-9 Score 9 03/27/2025 Patient Health Questionnaire-9 Score 9 03/27/2025 Last PHQ-9: Questionnaire Data Not on file 0 03/27/2025 Housing Stability Answer Date Recorded What is your housing situation today? I have faviola brown 03/27/[address] you li ve. Do you have problems with any of the following? Mold 03/27/2025 Food Insecurity Answer Date Recorded Within the past 12 months, y ou worried that your food would run out before you got money to buy more: Sometimes True 2024 Within the past 12 months,th e food you bought just didn't last and you didn't have enough money to get more: Sometimes True 03/27/2025 Transportation Answer Date Recorded In the past 12 months, has l ack of transportation kept you from medical appts, meetings, work or from getting things needed for daily living? No 03/27/2025 Utilities Answer Date Recorded In the past 12 months, has t he electric, gas, oil or water company threatened to shut off services in your home? No 03/27/2025 Depression Answer Date Recorded Patient Health Questionnaire-2 Score 2 03/27/2025 Internet Access Answer Date Recorded Internet Access Q1 Yes 03/27/2025 Internet Access Q2 Not on file 03/27/2025 Comments No Intention Date Recorded No desire to become (finding) 0 03/27/2025 Sex and Gender Information Value Date Recorded Sex Assigned at Female 05/12/2022 10:20 AM EDT Legal Sex Female 10:20 AM EDT Gender Identity Female 05/12/2022 10:20 AM EDT Sexual Orientation Straight 05/12/2022 10 :20 AM EDT documented as of this encounter Last Filed Vital Signs Vital Sign Reading Time Taken Comments Blood Pressure 112/78 03/27/2025 11:16 AM EDT Pulse 105 03/27/2025 11:16 AM EDT Temperature 36.9 C (98.4 F) 03/27/2025 11:16 AM EDT Respiratory Rate 12 03/27/2025 11:16 AM EDT Oxygen Saturation 98% 03/27/2025 11:16 AM EDT Inhaled Oxygen Concentration - - Weight 68.7 kg (151 lb 6.4 oz) 03/27/2025 11:16 AM EDT Height - - Body Mass Index 25.19 03/17/2024 11:17 AM EDT documented in this encounter Functional Status * Over the past 2 weeks, how often have you been bothered by any of the following problems? Question Answer Date of Assessment Author Patient Health Questionnaire -2 Score 2 03/27/2025 12:00 PM EDT Shireen Martinez MA * Little interest or pleasure in doing things Answer Date of Assessment Author More than half the days 03/27/2025 12:00 PM EDT Shireen Martinez MA * Feeling down, depressed, or hopeless Answer Date of Assessment Author Not at all 03/27/2025 12:00 PM EDT Shireen Martinez MA * Trouble falling or staying asleep, or sleeping too much Answer Date of Assessment Author More than half the days 03/27/2025 12:00 PM EDT Shireen Martinez MA * Feeling tired or having little energy Answer Date of Assessment Author Several days 03/27/2025 12:00 PM EDT Shireen Martinez MA * Poor appetite or overeating Answer Date of Assessment Author Nearly every day 03/27/2025 12:00 PM EDT Shireen Martinez MA * Feeling bad about yourself - or that you are a failure or have let yourself or your family down Answer Date of Assessment Author Several days 03/27/2025 12:00 PM EDShireen Ellison MA * Trouble concentrating on things, such as reading the newspaper or watching television Answer Date of Assessment Author Not at all 03/27/2025 12:00 PM EDT Shieren Martinez MA * Moving or speaking so slowly that other people could have noticed? Or the opposite - being so fidgety or restless that you have been moving around a lot more than usual. Answer Date of Assessment Author Not at all 03/27/2025 12:00 PM Shireen Alvarado MA * Thoughts that you would be better off or hurting yourself in some way Answer Date of Assessment Author Not at all 03/27/2025 12:00 PM Shireen Alvaraod MA * Patient Health Questionnaire-9 Score Answer Date of Assessment Author 9 03/27/2025 12:00 PM EDT Shireen Martinez MA * How difficult have these problems made it for you to do your work, take care of things at home, or get along with other people? Answer Date of Assessment Author Somewhat difficult 03/27/2025 12:00 PM Shireen Hill MA * Over the last 2 weeks, how often have you been bothered by any of the following problems? Question Answer Date of Assessment Author Feeling nervous, anxious, or on edge 0 03/27/2025 12:03 PM EDShireen Ellison MA Not being able to stop or co ntrol worrying 1 03/27/2025 12:03 PM EDT Shireen Martinez MA Worrying too much about diff erent things 1 03/27/2025 12:03 PM EDT Shireen Martinez MA Trouble relaxing 0 03/27/2025 12:03 PM EDT Shireen Martinez MA Being so restless that it is hard to sit still 0 03/27/2025 12:03 PM EDT Shireen Martinez MA Becoming easily annoyed or irritable 1 03/27/2025 12:03 PM EDT Shireen Martinez MA Feeling afraid as if somethi ng awful might happen 0 03/27/2025 12:03 PM EDT Shireen Martinez MA MONIE-7 Total Score 3 03/27/2025 12:03 PM EDT Shireen Martinez MA documented as of this encounter Progress Notes * Ashley Escamilla, DEBORA - 03/27/2025 11:30 AM EDT Subjective Patient ID: Saran Gordon is a 20 y.o. female who presents for oral contraceptive pill f/u Slynd rx'd 12/2023. Happy with method. Monthly menses x 2-4d. No heavy flow or bothersome camping. AMAB partner x few months, would like urine based STI testing. Nervous about bloodwork. Previous labs -elevated testosterone, normal TSH/Prl/estradiol and FSH. Positive Provera challenge 09/2023. Pelvic ultrasound showed no obvious uterine/ovarian pathology, EM thickness consistent with phase of menstrual cycle. Review of Systems Eyes: Negative for visual disturbance. Respiratory: Negative for shortness of breath. Cardiovascular: Negative for chest pain and leg swelling. Skin: Negative for color change. Neurological: Negative for headaches. Objective BP 112/78 (BP Location: Left arm, Patient Position: Sitting, BP Cuff Size: Adult) Pulse 105 Temp 98.4 ??F (36.9 ??C) (Oral) Resp 12 Wt 151 lb 6.4 oz (68.7 kg) LMP 03/26/2025 SpO2 98% BMI 25.19 kg/m?? Physical Exam Constitutional: Appearance: Normal appearance. Neurological: Mental Status: She is alert. Psychiatric: Mood and Affect: Mood normal. Behavior: Behavior normal. Assessment/Plan Diagnoses and all orders for this visit: Surveillance of previously prescribed contraceptive pill Happy with Slynd. Refills sent in. Side effects and danger signs reviewed. Followup 1 year if all well, will do pap then. Knows she can call any time for appointment before then if concerns. Encntr screen for infections w sexl mode of transmiss - Chlamydia/N. Gonorrhoeae, PCR, Urine - Trichomonas RNA (Urine/Vaginal) - Syphilis Screen; Future - HIV-1/2 Antigen and Antibodies, Fourth Generation, with Reflexes; Future - Hepatitis C Antibody with Reflex to HCV, RNA, Quantitative, Real-Time PCR; Future - Hepatitis B surface antigen, EIA; Future - Hepatitis B Surface Antibody, Qualitative; Future - Hepatitis B Core Antibody, Total; Future Urine Gonorrhea/Chlamydia/trichomonas sent. Reviewed tips to make blood draw easy. Eat a meal and drink plenty of water beforehand, let hand tube bender know she is nervous, may have reclining chair which can help. Other orders - Drospirenone (Slynd) 4 MG tablet; Take 1 tablet by mouth Once per day. documented in this encounter Plan of Treatment Scheduled Orders Name Type Priority Associated Diagnoses Orde r Schedule Trichomonas RNA (Urine/Vaginal) Lab Routine Encntr screen for infections w sexl mode of transmiss Ordered: 03/27/2025 Syphilis Screen Lab Routine Encntr screen for infections w sexl mode of transmiss Expected: 03/27/2025 (Approximate), Expires: 03/27/2026 HIV-1/2 Antigen and Antibodies, Fourth Generation, with Reflexes Lab Routine Encntr screen for infections w sexl mode of transmiss Expected: 03/27/2025 (Approximate), Expires: 03/27/2026 Hepatitis C Antibody with Reflex to HCV, RNA, Quantitative, Real-Time PCR Lab Routine Encntr screen for infections w sexl mode of transmiss Expected: 03/27/2025 (Approximate), Expires: 03/27/2026 Hepatitis B surface antigen, EIA Lab Routine Encntr screen for infections w sexl mode of transmiss Expected: 03/27/2025 (Approximate), Expires: 03/27/2026 Hepatitis B Surface Antibody, Qualitative Lab Routine Encntr screen for infections w sexl mode of transmiss Expected: 03/27/2025 (Approximate), Expires: 03/27/2026 Hepatitis B Core Antibody, Total Lab Routine Encntr screen for infections w sexl mode of transmiss Expected: 03/27/2025 (Approximate), Expires: 03/27/2026 documented as of this encounter Procedures Procedure Name Priority Date/Time Associated Diagnosis Comments CHLAMYDIA/TRICHOMON /NEISSERIA GONORRHOEAE, PCR, URINE Routine 03/27/2025 12:00 PM EDT Encntr screen for infections w sexl mode of transmiss documented in this encounter Results * Chlamydia/N. Gonorrhoeae, PCR, Urine (03/27/2025 12:00 PM EDT) CT PCR, Urine NOT DETECTED Not Detect. LABS Comment:A not detected test result does not exclude the possibilityof infection because test results can be affected byimproper specimen collection, concurrent antibiotic therapy,or the number of organisms in the specimen which may bebelow the sensitivity of the test. As with many diagnostictests, results from the Xpert CT/NG assay should beinterpreted in conjunction with other laboratory andclinical data available to the clinician.The Xpert CT/NG assay should not be used for the evaluationof suspected sexual abuse or for other medico-legalindications. Additional testing is recommended in anycircumstance when false positive or false negative resultscould lead to adverse medical, social or psychologicalconsequences. NG PCR, Urine NOT DETECTED Not Detect. LABS Comment:A not detected test result does not exclude the possibilityof infection because test results can be affected byimproper specimen collection, concurrent antibiotic therapy,or the number of organisms in the specimen which may bebelow the sensitivity of the test. As with many diagnostictests, results from the Xpert CT/NG assay should beinterpreted in conjunction with other laboratory andclinical data available to the clinician.The Xpert CT/NG assay should not be used for the evaluationof suspected sexual abuse or for other medico-legalindications. Additional testing is recommended in anycircumstance when false positive or false negative resultscould lead to adverse medical, social or psychologicalconsequences. Urine (Urine, Random) 03/27/2025 12:00 PM EDT 03/27/2025 5:46 PM EDT us Ashley Escamilla CNM LAB URINE ORDERABLES Krista dean Result Performing Organization Address City/State/[facility] Co de Phone Number LABS [address] [place] [address] [phone] documented in this encounter Visit Diagnoses Diagnosis Surveillance of previously prescribed contraceptive pill- Primary Encntr screen for infections w sexl mode of transmiss documented in this encounter Additional Health Concerns Assessment Noted Time PHQ-9 Depression Total Score: 9 03/27/20 25 12:00 PM EDT documented as of this encounter Care Teams Resolution Manager Relationship Specialty Start Date End Date Shania Kaufman ANP [address] [place] [id number] PCP - General Family Medicine 07/19/20 documented as of this encounter
[2025-03-27 20:39] LABS: CT PCR Urine NOT DETECTED (Not Detect.); NG PCR Urine NOT DETECTED (Not Detect.)
--- OUTSIDE RECORDS SUMMARY | 2025-03-27 21:45 | XMS_ITS | Encounter Summary ---
Author Organization [employer] Address [address] 7[address] [place] [address] Care Team Providers Care Graduate School Dean Name Role Phone Shae Shania SUGGS Primary Care Provider [phone] Reason for Visit * Reason Onset Date Comments Med Refill 04/19/2024 Encounter Details Date Type Department Care Team (Late st Contact Info) Description 04/19/2024 Refill [facility]INE [address] [place] [address] Ashley Escamilla CN [address] [place] [address] Social History Tobacco Use Types Packs/Day Years [...] as of this encounter Plan of Treatment Not on file documented as of this encounter Visit Diagnoses Not on filedocumented in this encounter Additional Health Concerns Assessment Noted Time PHQ-9 Depression Total Score: 5 12/13/19 23 1:45 PM EDT documented as of this encounter Care Teams Graduate School Dean Relationship Specialty Start Date End Date Shania Kaufman ANP [address] [place] [phone] PCP - General Family Medicine 07/19/20 documented as of this encounter
--- OUTSIDE RECORDS SUMMARY | 2025-03-27 21:45 | XMS_ITS | Encounter Summary ---
Author Organization [employer] Address [address] [place] [address] Care Team Providers Care Armature Winder Repair Name Role Phone Shania Kaufman ES Primary Care Provider [phone] Reason for Visit * Reason Onset Date Comments Med Refill 11/04/2024 Encounter Details Date Type Department Care Team (Late st Contact Info) Description 11/04/2024 Refill [facility] [address] [place] [address] Ashley Escamilla CN [address] [place] [address] Social History Tobacco Use Types Packs/Day Years [...] documented as of this encounter Care Teams Armature Winder Repair Relationship Specialty Start Date End Date Shania Kaufman ANP [address] [place] [phone] PCP - General Family Medicine 07/19/20 documented as of this encounter
--- OUTSIDE RECORDS SUMMARY | 2025-03-27 21:45 | XMS_ITS | Encounter Summary ---
Author Organization [employer] Address [address] 7[address] [place] [address] Care Team Providers Care Basic Sciences Professor Name Role Phone Shania Kaufman ES Primary Care Provider [phone] Reason for Visit * Reason Onset Date Comments Med Refill 08/11/2024 Encounter Details Date Type Department Care Team (Late st Contact Info) Description 08/11/2024 Refill [facility] MEDICINE [address] [place] [address] Ashley Escamilla CN [address] [place] [address] Social History Tobacco Use Types Packs/Day Years [...] documented as of this encounter Care Teams Basic Sciences Professor Relationship Specialty Start Date End Date Shania Kaufman ANP [address] [place] [phone] PCP - General Family Medicine 07/19/20 documented as of this encounter
--- OUTSIDE RECORDS SUMMARY | 2025-03-27 21:45 | XMS_ITS | Encounter Summary ---
Author Organization [employer] Address [address] [facility] 7[address] [place] [address] Care Team Providers Care Market Research Associate Name Role Phone Ramesh Talamantes ES Primary Care Provider [phone] Reason for Referral * Imaging (Urgent) - Closed Specialty Diagnoses / Procedures Referred By Contac t Referred To Contact Radiology Diagnoses Irregular menses Procedures US Pelvis Transvaginal Aicha Sharp CNM [address] [place] [address] Phone: tel: fax: [address] Phone: tel: fax: Referral ID Status Reason Start Date Expiration Date Visits Re quested Visits Authorized [id number] Closed 08/18/2023 08/17/2024 1 1 * Imaging (Urgent) - Closed Specialty Diagnoses / Procedures Referred By Contac t Referred To Contact Radiology Diagnoses Irregular menses Procedures Us Pelvis complete Aicha Sharp CNM [address] [place] [address] Phone: tel: fax: [address] Phone: tel: fax: Referral ID Status Reason Start Date Expiration Date Visits Re quested Visits Authorized [id number] Closed 08/18/2023 08/17/2024 1 1 Encounter Details Date Type Department Care Team (Late st Contact Info) Description 08/18/2023 Orders Only [facility] MEDICINE [address] [place] [address] Aicha Sharp CNM [address] [place] [address] Irregular menses (Primary Dx) Social History Tobacco [...] Miscellaneous Notes * Result Encounter Note - Aicha Sharp CNM - 08/18/2023 8:17 AM EST [...] iseasiest. Thanks! * Result Encounter Note - Aicha Sharp CNM - 08/18/2023 8:17 AM EST [...] PM EST Narrative 09/11/2023 3:14 PM EST [address] [address] Ultrasound Report Signed Patient: Saran Gordon MR#: [id number] : 2005 Acct:[id number] Age/Sex: 18 / F ADM Date: 09/11/23 Loc: HO.US Attending Dr: Aicha Sharp CNM Ordering Physician: AICHA SHARP CNM Date of Service: 09/11/23 Procedure(s): US pelvic and transvaginal Accession Number(s): [id number] cc: AICHA SHARP CNM; RAMESH TALAMANTES NP EXAMINATION: US [...] in OV> 09/11/23 1511 DD/ 1215 TD/TT: Registered Mail Clerk: [facility] Procedure Note Donotuseinterpreter, Image - 09/11/[address] [address] Ultrasound Report Signed Patient: Saran GordonMR#: [id number] : 2005Acct:[id number] Age/Sex: 18 / FADM Date: 09/11/23 Loc: .US Attending Dr: Aicha Sharp CNM Ordering Physician: AICHA SHARP CNM Date of Service: 09/11/23 Procedure(s): US pelvic and transvaginal Accession Number(s): [id number] cc: AICHA SHARP CNM; RAMESH TALAMANTES NP EXAMINATION: US [...] in OV> 09/11/23 1511 DD/ 1215 TD/TT: Registered Mail Clerk: [facility] us Aicha Sharp CNM IMG US PROCEDURES Final R esult documented in this encounter Visit Diagnoses Diagnosis Irregular menses- Primary Irregular menstrual cycle documented in this encounter Additional Health Concerns Assessment Noted Time PHQ-9 Depression Total Score: 5 12/13/19 23 1:45 PM EDT documented as of this encounter Care Teams Market Research Associate Relationship Specialty Start Date End Date Ramesh Talamantes ANP [address] [place] [address] PCP - General Family Medicine 07/19/20 documented as of this encounter
--- OUTSIDE RECORDS SUMMARY | 2025-03-27 21:45 | XMS_ITS | Encounter Summary ---
Author Organization [employer] Address [address] 7[address] [place] [address] Care Team Providers Care Desulfurizer Hand Name Role Phone Shania Kaufman Primary Care Provider [phone] Reason for Visit * Reason Comments Med Refill Encounter Details Date Type Department Care Team (Late st Contact Info) Description 01/26/2025 Refill [facility] MEDICINE [address] [place] [address] Shania Kaufman ANP [address] [place] [address] Social History Tobacco Use Types Packs/Day Years [...] documented as of this encounter Care Teams Desulfurizer Hand Relationship Specialty Start Date End Date Shania Kaufman ANP [address] [place] [address] PCP - General Family Medicine 07/19/20 documented as of this encounter
--- OUTSIDE RECORDS SUMMARY | 2025-03-27 21:45 | XMS_ITS | Encounter Summary ---
Author Organization [employer] Address [address] [facility] [place] [address] Care Team Providers Care Print Manager Name Role Phone Shae Shania SUGGS Primary Care Provider [phone] Reason for Visit * Reason Onset Date Comments CHART PREP 03/24/2025 Encounter Details Date Type Department Care Team ([facility] st Contact Info) Description 03/24/2025 Telephone [facility] MEDICINE [address] [place] [address] Ashley Escamilla CNM [address] [place], [place] [phone] CHART PREP Social History Tobacco Use Types Packs/Day Years [...] as of this encounter Miscellaneous Notes * Telephone Encounter - Elana Easton MA - 03/24/2025 2:04 PM EDT Chart Prep Labs: not applicable Images: done Referrals: not applicable Vaccines due: Covid and Flu Screenings: LMP Overdue care gaps: SBIRT, SDOH, PHQ-9, MONIE-7, and Oral health screening documented in this encounter Plan of Treatment Not on file documented as of this encounter Visit Diagnoses Not on filedocumented in this encounter Additional Health Concerns Assessment Noted Time PHQ-9 Depression Total Score: 5 12/13/19 23 1:45 PM EDT documented as of this encounter Care Teams Print Manager Relationship Specialty Start Date End Date Shania Kaufman ANP [address] [place] [id number] PCP - General Family Medicine 07/19/20 documented as of this encounter
--- OUTSIDE RECORDS SUMMARY | 2025-03-27 21:45 | XMS_ITS | Encounter Summary ---
Author Organization [email or web address] Address [address] [place] [address] Care Team Providers Care Cook Helper Meat Name Role Phone Shania Kaufman ES Primary Care Provider [phone] Encounter Details Date Type Department Care Team (Latest Contact Info) Description 03/27/2025 Travel Social History Tobacco Use Types Packs/Day [...] your housing situation today? I have faviola sing 03/27/[address] you li [...] t he electric, gas, oil or water [employer] threatened to shut off services in your home? No 03/27/2025 Depression Answer Date Recorded Patient Health Questionnaire-2 Score 2 03/27/2025 Internet Access Answer Date Recorded Internet Access Q1 Yes 03/27/2025 Internet Access Q2 Not on file 03/27/2025 Comments No Sex and Gender Information Value Date Recorded Sex Assigned at Female 05/12/2022 10:20 AM EDT Legal Sex Female 10:20 AM EDT Gender Identity Female 05/12/2022 10:20 AM EDT Sexual Orientation Straight 05/12/2022 10 :20 AM EDT documented as of this encounter Functional Status * Over the [...] PM EDT Shireen Martinez MA * Trouble concentrating on things, such as reading the newspaper or watching television Answer Date of Assessment Author Not at all 03/27/2025 12:00 PM EDT Shireen Martinez MA * Moving or speaking so slowly that other people could have noticed? Or the opposite - being so fidgety or restless that you have been moving around a lot more than usual. Answer Date of Assessment Author Not at all 03/27/2025 12:00 PM EDT Shireen Martinez MA * Thoughts that you would be better off or hurting yourself in some way Answer Date of Assessment Author Not at all 03/27/2025 12:00 PM EDT Shireen Martinez MA * Patient Health Questionnaire-9 Score Answer Date of Assessment Author 9 03/27/2025 12:00 PM EDT Shireen Martinez MA * How difficult have these problems made it for you to do your work, take care of things at home, or get along with other people? Answer Date of Assessment Author Somewhat difficult 03/27/2025 12:00 PM EDT Shireen Wood MA * Over the last 2 weeks, how often have you been bothered by any of the following problems? Question Answer Date of Assessment Author Feeling nervous, anxious, or on edge 0 03/27/2025 12:03 PM EDT Shireen Martinez MA Not being able to stop or [...] Martinez MA documented as of this encounter Plan of Treatment Not on file documented as of this encounter Visit Diagnoses Not on filedocumented in this encounter Additional Health Concerns Assessment Noted Time PHQ-9 Depression Total Score: 9 03/27/20 25 12:00 PM EDT documented as of this encounter Care Teams Cook Helper Meat Relationship Specialty Start Date End Date Shania Kaufman ANP [address] [place] [address] PCP - General Family Medicine 07/19/20 documented as of this encounter
--- OUTSIDE RECORDS SUMMARY | 2025-03-27 21:45 | XMS_ITS | Encounter Summary ---
Author Organization [employer] Address [address] [facility] [address] 7[address] [place] [address] Care Team Providers Care Cork Floor Installer Name Role Phone Shania Kaufman ES Primary Care Provider [phone] Reason for Visit * Reason Onset Date Comments Med Refill 05/17/2024 Encounter Details Date Type Department Care Team (Late st Contact Info) Description 05/17/2024 Refill [facility] [address] [place] [address] Ashley Escamilla CN [address] [place] [address] Social History Tobacco Use Types Packs/Day Years [...] documented as of this encounter Care Teams Cork Floor Installer Relationship Specialty Start Date End Date Shania Kaufman ANP [address] [place] [address] PCP - General Family Medicine 07/19/20 documented as of this encounter
--- OUTSIDE RECORDS SUMMARY | 2025-03-27 21:45 | XMS_ITS | Encounter Summary ---
Author Organization [employer] Address [address] [facility] [address] 7[address] [place] [address] Care Team Providers Care Chicken Raiser Name Role Phone Shania Kaufman ES Primary Care Provider [phone] Encounter Details Date Type Department Care Team [...] documented as of this encounter Care Teams Chicken Raiser Relationship Specialty Start Date End Date Shania Kaufman ANP [address] [place] [address] PCP - General Family Medicine 07/19/20 documented as of this encounter
--- OUTSIDE RECORDS SUMMARY | 2025-03-27 21:45 | XMS_ITS | Encounter Summary ---
Author Organization [employer] Address [address] 7[address] [place] [address] Care Team Providers Care Assembler Sandal Parts Name Role Phone Kaufman Shania SUGGS Primary Care Provider Encounter Details Date Type Department Care Team (Late st Contact Info) Description 03/24/2025 Results Follow-Up [facility] [address] [place] [address] Lucia Rayo MD [address] [place] [address] XR Foot 3+ Views Right Social History Tobacco Use Types Packs/Day Years [...] your housing situation today? I have faviola stephanie 03/27/[address] you li [...] documented as of this encounter Care Teams Assembler Sandal Parts Relationship Specialty Start Date End Date Shania Kaufman ANP [address] [place] [address] PCP - General Family Medicine 07/19/20 documented as of this encounter
--- OUTSIDE RECORDS SUMMARY | 2025-03-27 21:45 | XMS_ITS | Clinical Summary ---
Author Organization [employer] Address [address] [facility] [address] 7[address] [place] [address] Care Team Providers Care Fire Protection Specialist Name Role Phone Shania Kaufman ES Primary Care Provider [phone] Allergies Active Allergy Reactions Criticality Noted Date Comments Pollen Extract 08/12/2023 Medications cromolyn (Opticrom) 4 % ophthalmic solution PLACE 1 DROP INTO THE AFFECTED EYE(S) FOUR TIMES DAILY 06/16/20 22 Active cetirizine (ZyrTEC) 10 MG tablet Take 1 tablet (10 mg) by mouth Once per day. 90 tablet 1 11/17/19 24 Active Acetaminophen 500 MG capsuleIndicati ons:Injury of toe on right foot, initial encounter Take 1 capsule (500 mg) by mouth every 8 (eight) hours if needed for moderate pain or fever. 30 capsule 03/23/20 25 025 Active Drospirenone (Slynd) 4 MG tablet Take 1 tablet by mouth Once per day. 84 tablet 3 03/27/20 25 Active ofloxacin (Floxin) 0.3 % otic solutionIndicat ions:Otitis externa, unspecified chronicity, unspecified laterality, unspecified type 5 drops to R ear canal BID x 7 days 10 mL 02/23/20 24 025 Discontinued Slynd 4 MG tablet TAKE 1 TABLET BY MOUTH ONCE DAILY 84 tablet 01/21/20 25 025 Discontinued(Re order (will not trigger notification to Pharmacy)) Active Problems Problem Noted Date Diagnosed Date Sleep difficulties 09/15/2022 Behavior concern 07/22/2016 Eczema 07/22/2016 Asthma 11/22/2012 Seasonal allergic rhinitis 08/23/2012 Encounters Date Type Department Care Team Description 03/27/2025 11:30 AM EDT Office Visit [facility] [address] [place], [place] [address] [address] Ashley Escamilla CNM Surveillance of previously prescribed contraceptive pill (Primary Dx); Encntr screen for infections w sexl mode of transmiss 03/27/2025 Travel 03/24/[address] [address] Ashley Escamilla CNM CHART PREP 03/24/2025 Results Follow-Up [facility] [address] [place] [address] Lucia Rayo MD XR Foot 3+ Views Right 03/23/2025 3:00 PM EDT Office Visit [facility] [address] [place] [address] Lucia Rayo MD Closed fracture of proximal phalanx of lesser toe of right foot, physeal involvement unspecified, initial encounter (Primary Dx); Injury of toe on right foot, initial encounter 03/23/2025 Travel 03/20/2025 Travel 01/26/[address] [address] Shania Kaufman ANP Results 01/26/[address] [address] Shania Kaufman ANP 01/23/[address] [address] Ashley Escamilla CNM Appointment Request 01/20/[address] [address] Ashley Escamilla CNM from Last 3 Months [...] 6.4 oz) 03/27/2025 11:16 AM EDT Height 165.1 cm (5' 5 ) 03/17/2024 11:17 AM EDT Body Mass Index 25.19 03/17/2024 11:17 AM EDT Plan of Treatment Health Maintenance Due Date Last Done Comments Chlamydia and Gonorrhea Screening 2005 HIV Screening 2005 Meningococcal B Vaccine (1 of 2 - Standard) 2021 Hepatitis C Screening 2023 Pneumococcal Vaccine: Pediatrics (0 to 5 Years) and At-Risk Patients (6 to 49) Years (1 of 2 - PCV) 02/26/2024 09/11/2006, 01/15/2006 COVID-19 Vaccine (3 - season) 2025 04/23/2021, 04/02/2021 Influenza Vaccine (#1) 2025 2, 04/11/2022, 07/23/2020, Additional history exists Depression Monitoring 09/24/2025 03/27/2025, 025 Disability Screening 03/20/2026 03/20/2025 Alcohol/Substance Use Screening 03/27/2026 03/27/2025 Family Planning (PISQ) 03/27/2026 03/27/2025 SDOH Screening 03/27/2026 03/27/2025 Tobacco Screening 03/27/2026 03/27/2025 DTaP/Tdap/Td Vaccines (7 - Td or Tdap) [...] for infections w sexl mode of transmiss XR FOOT 3+ VIEWS RIGHT Routine 03/23/2025 4:06 PM EDT Injury of toe on right foot, initial encounter from Last 3 Months Results * Chlamydia/N. Gonorrhoeae, PCR, Urine (03/27/2025 12:00 PM EDT) CT PCR, Urine NOT DETECTED Not Detect. [facility] Comment:A not detected test result does [...] NG PCR, Urine NOT DETECTED Not Detect. [facility] Comment:A not detected test result does [...] EDT 03/27/2025 5:46 PM EDT us Ashley [facility] URINE ORDERABLES Krista l Result [facility] [address] [place] [address] [phone] * XR Foot 3+ Views Right (03/23/2025 4:06 PM EDT) Anatomical Region Laterality Modality Lower Extremities, Foot Right Radiogra phic Imaging 03/23/2025 4:06 PM EDT Narrative 03/23/2025 4:15 PM EDT [address] [address] XRay Report Signed Patient: Saran Gordon MR#: [id number] : 2005 Acct:[id number] Age/Sex: 20 / F ADM Date: 03/23/25 Loc: HO.HHCX Attending Dr: Lucia Rayo MD Ordering Physician: Lucia Rayo MD Date of Service: 03/23/25 Procedure(s): XR foot RT min 3V Accession Number(s): [id number] cc: Lucia Rayo MD Reason for Exam: [...] 03/23/25 1611 DD/ 1606 TD/TT: 03/23/25 1607 Customer Service Specialist: Procedure Note Donotuseinterpreter, Image - 03/23/[address] [address] XRay Report Signed Patient: Saran GordonMR#: [id number] : 2005Acct:[id number] Age/Sex: 20 / FADM Date: 03/23/25 Loc: HO.HHCX Attending Dr: Lucia Rayo MD Ordering Physician: Lucia Rayo MD Date of Service: 03/23/25 Procedure(s): XR foot RT min 3V Accession Number(s): [id number] cc: Lucia Rayo MD Reason for Exam: [...] 03/23/25 1611 DD/ 1606 TD/TT: 03/23/25 1607 Customer Service Specialist: Lucia Rayo MD IMG XR PROCEDURES Final Re sult from Last 3 Months Insurance [employer] C3 [facility] C3 Care Teams Fire Protection Specialist Relationship Specialty Start Date End Date Shania Kaufman ANP [address] [place] [phone] PCP - General Family Medicine 07/19/20
== END 2025-03-27 17:46 | disposition home or self-care (01) ==
LOC: HO.HHCLNP 17:45
PROVIDERS: Visit Provider Advanced Practice Midwife
DX: Z11.3 Encounter for screening for infections with a predominantly sexual mode of transmission (principal)
CPT/HCPCS: 87491; 87591

== ENCOUNTER 2025-04-26 13:57 | Outpatient (AMB) | payer MEDICAID, SELFPAY ==
[2025-04-26 14:07] VITALS: BMI 24.5
--- NOTE | 2025-04-26 14:07 | MHC.OFFVIS ---
Vital Signs 04/26/25 14:07 Height 5 ft 5 in Weight 147 lb BMI 24.5 Intake Visit Reasons: Closed fracture of proximal phalanx of lesser toe Intake Note: Saran is a 20 year old female who presents today as a New Patient for evaluation of Right Small Toe Fracture, DOI 03/19/25. Injury occurred after chasing her boyfriend and stubbing her toe on a box. She was seen at the Walk in clinic where she was prescribed Acetaminophen. No previous history of fractures or sprains. She reports she has not taken the pain medication however she notes improvement in her toe. Pain occurs when pressure is applied or is toe is stubbed other then that her toe is fine. Allergies No Known Allergies Allergy (Verified 04/26/25 14:08) HPI Comments Details: The patient is a 20-year-old female with a PMH as seen below presenting with an injury of the right fifth toe. Patient states she was running and stubbed her toe against a box. She states she initially noticed pain, swelling, and bruising. She went to the walk-in clinic 2 days later due to persistent pain in which she had Xrays done. She states her symptoms have improved since the injury and only feels mild pain with pressure to movement of the toe. She denies any radiation of pain. Patient states the sensation to the toe has slightly diminished in comparison to the other toes. She states her bruising and swelling has resolved. Patient was given Tylenol but states she no longer takes it due to the reduction in pain. She denies wearing a post-op shoe. She has been WBAT to the E in [facility]. [facility] Medical History (Updated 04/26/25 @ 14:43 by Kajal Arora DPM) Right foot injury Fracture of phalanx of right fifth toe Right foot pain Asthma Social History Alcohol intake: never Review of Systems Const Details: - Musculoskeletal: Reports fracture of the right fifth toe with intermittent pain on pressure. Denies persistent pain. - Neurological: Reports decreased sensation to the right fifth toe. Denies other neurological symptoms. Physical Exam Vital Signs: BMI result Body Mass Index 24.5 Extrem Other: RLE Focused Physical Exam: Derm: Minimal ecchymosis noted to the 5th toe. Skin supple and turgor WNL. No edema noted. No open lesions, abrasions, or wounds noted. No clinical signs of infection noted. Vasc: DP/PT pulses palpable. CFT < 3 secs. Temp gradient warm to warm. No varicosities noted. Pedal hair present. Neuro: Protective sensations grossly intact except noted diminished sensation to light touch on the 5th toe. MSK: No pain on palpation to the forefoot. Minimal pain with ROM of the 5th toe. No crepitus noted. ROM of remaining toes WNL. Nonantalgic gait unassisted noted. Results Reviewed Results Reviewed: Podiatry Read of Right foot x-rays (03/23/25): Minimally displaced intra-articular fracture noted to the medial aspect of the head of the proximal phalanx. Joint spacing WNL. No acute dislocations noted. Right foot x-rays (03/23/25): FINDINGS: There is an intra-articular fracture involving the head of the fifth proximal phalanx extending to the medial metaphysis. There is a small gap at the articular surface.. No other abnormalities are apparent. IMPRESSION: Acute intra-articular fracture of the head of the fifth proximal phalanx extending to the medial metaphysis. There is a 1-2 mm gap at the articular surface Assessment & Plan Assessment & Plan (1) Right foot pain: Code(s): M79.671 - Pain in right foot Category: Medical (2) Fracture of phalanx of right fifth toe: Code(s): S92.501A - Displaced unspecified fracture of right lesser toe(s), initial encounter for closed fracture Category: Medical (3) Right foot injury: Code(s): S99.921A - Unspecified injury of right foot, initial encounter Category: Medical Qualifiers: Encounter type: initial encounter Qualified Code(s): S99.921A - Unspecified injury of right foot, initial encounter Plan Patient was informed and verbally consented to the use of an ambient scribe for clinic note documentation during this visit. I discussed with the patient that the fracture of the right fifth toe is minimally displaced and should heal on its own. Educated patient about time line of fracture healing (6-8 weeks). I emphasized the importance of wearing supportive shoes to prevent movement of the fracture and advised on dexter taping if pain recurs. I explained that numbness and tingling are due to nerve compression and should resolve. I instructed the patient to perform range of motion exercises to maintain mobility and to monitor for any worsening symptoms, advising a return visit if necessary. - Advised wearing supportive sneakers to further displacement of the fracture and promote healing. - Recommend dexter taping the fifth toe to the fourth toe if pain recurs, to provide stability. - RICE protocol prn pain. - Encouraged range of motion exercises to prevent stiffness and promote mobility. - Avoid barefoot walking. - Monitor for increased swelling, bruising, or pain, and return for evaluation if these occur. RTC as needed. Coding Level of Care Code New Pt Level 4 (61059) Diagnoses Right foot pain M79.671 Fracture of phalanx of right fifth toe S92.501A Injury of right foot, initial encounter S99.921A Encounter type: initial encounter Time Spent (min) 50
--- OUTSIDE RECORDS SUMMARY | 2025-04-26 17:42 | XMS_ITS | Encounter Summary ---
Author Organization [employer] Address [address] [facility] 7t [place] [address] Care Team Providers Care Emission Specialist Name Role Phone Ramesh Talamantes ES Primary Care Provider [phone] Reason for Referral * Imaging (Urgent) - Closed Specialty Diagnoses / Procedures Referred By Contac t Referred To Contact Radiology Diagnoses Irregular menses Procedures US Pelvis Transvaginal Aicha Sharp CNM [address] [place] [address] Phone: tel: fax: [address] Phone: tel: fax: Referral ID Status Reason Start Date Expiration Date Visits Re quested Visits Authorized [id number] Closed 08/18/2023 08/17/2024 1 1 * Imaging (Urgent) - Closed Specialty Diagnoses / Procedures Referred By Contac t Referred To Contact Radiology Diagnoses Irregular menses Procedures Us Pelvis complete Aicha Sharp CNM [address] [place] [address] Phone: tel: fax: [address] Phone: tel: fax: Referral ID Status Reason Start Date Expiration Date Visits Re quested Visits Authorized [id number] Closed 08/18/2023 08/17/2024 1 1 Encounter Details Date Type Department Care Team (Late st Contact Info) Description 08/18/2023 Orders Only [facility] MED[facility]INE [address] [place] [address] Aicha Sharp CNM [address] [place] [address] Irregular menses (Primary Dx) Social History Tobacco [...] - 08/18/2023 8:17 AM EST Please let aSran know her pelvic ultrasound showed the lining [...] PM EST Narrative 09/11/2023 3:14 PM EST [address] [address] Ultrasound Report Signed Patient: Saran Gordon MR#: [id number] : 2005 Acct:[id number] Age/Sex: 18 / F ADM Date: 09/11/23 Loc: HO.US Attending Dr: Aicha Sharp CNM Ordering Physician: AICHA SHARP CNM Date of Service: 09/11/23 Procedure(s): US pelvic and transvaginal Accession Number(s): [id number] cc: AICHA SHARP CNM; RAMESH TALAMANTES NP [...] in OV> 09/11/23 1511 DD/ 1215 TD/TT: Fishing Vessel Operator: [facility] Procedure Note Donotuseinterpreter, Image - 09/11/[address] [address] Ultrasound Report Signed Patient: Saran GordonMR#: [id number] : 2005Acct:[id number] Age/Sex: 18 / FADM Date: 09/11/23 Loc: .US Attending Dr: Aicha Sharp CNM Ordering Physician: AICHA SHARP CNM Date of Service: 09/11/23 Procedure(s): US pelvic and transvaginal Accession Number(s): [id number] cc: AICHA SHARP CNM; RAMESH TALAMANTES NP [...] in OV> 09/11/23 1511 DD/ 1215 TD/TT: Fishing Vessel Operator: [facility] us Aicha Sharp CNM IMG US PROCEDURES Final R esult documented in this encounter Visit Diagnoses Diagnosis Irregular menses- Primary Irregular menstrual cycle documented in this encounter Additional Health Concerns Assessment Noted Time PHQ-9 Depression Total Score: 5 12/13/19 23 1:45 PM EDT documented as of this encounter Care Teams Emission Specialist Relationship Specialty Start Date End Date Ramesh Talamantes ANP [address] [place] [address] PCP - General Family Medicine 07/19/20 documented as of this encounter
--- OUTSIDE RECORDS SUMMARY | 2025-04-26 17:42 | XMS_ITS | Encounter Summary ---
Author Organization [employer] Address [address] 7[address] [place] [address] Care Team Providers Care Chain Maker Machine Name Role Phone Shania Kaufman ES Primary Care Provider Reason for Visit * Reason Onset Date Comments Med Refill 11/04/2024 Encounter Details Date Type Department Care Team (Late st Contact Info) Description 11/04/2024 Refill [facility] [address] [place] [address] Ashley Escamilla CN [address] [place] [address] Social History Tobacco Use Types Packs/Day Years [...] documented as of this encounter Care Teams Chain Maker Machine Relationship Specialty Start Date End Date Shania Kaufman ANP [address] [place] [address] PCP - General Family Medicine 07/19/20 documented as of this encounter
--- OUTSIDE RECORDS SUMMARY | 2025-04-26 17:42 | XMS_ITS | Encounter Summary ---
Author Organization [employer] Address [address] [place] [address] Care Team Providers Care Foreign Language Teacher Name Role Phone Shania Kaufman ES Primary Care Provider [phone] Reason for Visit * Reason Onset Date Comments Med Refill 05/17/2024 Encounter Details Date Type Department Care Team (Late st Contact Info) Description 05/17/2024 Refill [facility] [address] [place] [address] Ashley Escamilla CN [address] [place] [address] Social History Tobacco Use Types Packs/Day Years [...] documented as of this encounter Care Teams Foreign Language Teacher Relationship Specialty Start Date End Date Shania Kaufman ANP [address] [place] [address] PCP - General Family Medicine 07/19/20 documented as of this encounter
--- OUTSIDE RECORDS SUMMARY | 2025-04-26 17:42 | XMS_ITS | Encounter Summary ---
Author Organization [employer] Address [address] [place] [address] Care Team Providers Care Ekg Monitor Tech Name Role Phone Kaufman Shania SUGGS Primary Care Provider [phone] Encounter Details Date Type Department Care Team (Late st Contact Info) Description 03/24/2025 Results Follow-Up [facility] [address] [place] [address] Lucia Rayo MD [address] [place] [address] XR Foot 3+ Views Right Social History [...] documented as of this encounter Care Teams Ekg Monitor Tech Relationship Specialty Start Date End Date Shania Kaufman ANP [address] [place] [address] PCP - General Family Medicine 07/19/20 documented as of this encounter
--- OUTSIDE RECORDS SUMMARY | 2025-04-26 17:42 | XMS_ITS | Encounter Summary ---
Author Organization [employer] Address [address] [facility] [address] 7[address] [place] [address] Care Team Providers Care Process Lead Name Role Phone Shania Kaufman Primary Care Provider [phone] Reason for Visit * Reason Comments Med Refill Encounter Details Date Type Department Care Team (Late st Contact Info) Description 01/26/2025 Refill [facility] [address] [place] [address] Shania Kaufman ANP [address] [place] [address] Social History Tobacco Use Types Packs/Day Years [...] documented as of this encounter Care Teams Process Lead Relationship Specialty Start Date End Date Shania Kaufman ANP [address] [place] [address] PCP - General Family Medicine 07/19/20 documented as of this encounter
--- OUTSIDE RECORDS SUMMARY | 2025-04-26 17:42 | XMS_ITS | Encounter Summary ---
Author Organization [employer] Address [address] [address] [facility] [address] [place] [address] Care Team Providers Care Barrel Centerer Name Role Phone Shania Kaufman ES Primary Care Provider [phone] Reason for Visit * Reason Onset Date Comments Med Refill 04/17/2025 Encounter Details Date Type Department Care Team (Late st Contact Info) Description 04/17/2025 Refill [facility] [address] [place] [address] Ashley Escamilla CN [address] [place] [address] Social History Tobacco Use Types Packs/Day Years [...] documented as of this encounter Care Teams Barrel Centerer Relationship Specialty Start Date End Date Shania Kaufman ANP [address] [place] [address] PCP - General Family Medicine 07/19/20 documented as of this encounter
--- OUTSIDE RECORDS SUMMARY | 2025-04-26 17:42 | XMS_ITS | Encounter Summary ---
Author Organization [employer] Address [address] [facility] [address] [place] [address] Care Team Providers Care Hand Endband Cutter Name Role Phone Shania Kaufman ES Primary Care Provider [phone] Reason for Visit * Reason Onset Date Comments Med Refill 08/11/2024 Encounter Details Date Type Department Care Team (Late st Contact Info) Description 08/11/2024 Refill [facility] [address] [place] [address] Ashley Escamilla CN [address] [place] [address] Social History Tobacco Use Types Packs/Day Years [...] documented as of this encounter Care Teams Hand Endband Cutter Relationship Specialty Start Date End Date Shania Kaufman ANP [address] [place] [phone] PCP - General Family Medicine 07/19/20 documented as of this encounter
--- OUTSIDE RECORDS SUMMARY | 2025-04-26 17:42 | XMS_ITS | Clinical Summary ---
Author Organization [employer] Address [address] [place] [address] Care Team Providers Care Procurement Representative Name Role Phone Shania Kaufman ES Primary Care Provider [phone] Allergies Active Allergy Reactions Criticality Noted Date Comments Pollen Extract 08/12/2023 Medications cromolyn (Opticrom) 4 % ophthalmic solution PLACE 1 DROP INTO THE AFFECTED EYE(S) FOUR TIMES DAILY 2 Active cetirizine (ZyrTEC) 10 MG tablet Take 1 tablet (10 mg) by mouth Once per day. 90 tablet 1 4 Active Drospirenone (Slynd) 4 MG tablet Take 1 tablet by mouth Once per day. 84 tablet 3 5 Active Acetaminophen 500 MG capsuleIndicati ons:Injury of toe on right foot, initial encounter Take 1 capsule (500 mg) by mouth every 8 (eight) hours if needed for moderate pain or fever. 30 capsule 5 04/22/20 25 Active Problems Problem Noted Date Diagnosed Date Sleep difficulties 09/15/2022 Behavior concern 07/22/2016 Eczema 07/22/2016 Asthma 11/22/2012 Seasonal allergic rhinitis 08/23/2012 Encounters Date Type Department Care Team Description 04/17/2025 Refill [facility] [address] [place] [address] Ashley Escamilla CNM 03/27/2025 11:30 AM EDT Office Visit [facility] [address] [place] [address] Ashley Escamilla CNM Surveillance of previously prescribed contraceptive pill (Primary Dx); Encntr screen for infections w sexl mode of transmiss 03/27/2025 Travel 03/24/2025 Telephone [facility] [address] [place] [phone] Ashley Escamilla CNM CHART PREP 03/24/2025 Results Follow-Up [facility] [address] [place] [phone] Lucia Rayo MD XR Foot 3+ Views Right 03/23/2025 3:00 PM EDT Office Visit [facility] [address] [place] [phone] Lucia Rayo MD Closed fracture of proximal phalanx of lesser toe of right foot, physeal involvement unspecified, initial encounter (Primary Dx); Injury of toe on right foot, initial encounter 03/23/2025 Travel 03/20/2025 Travel 01/26/[address] [address] Shania Kaufman ANP Results 01/26/2025 Refill [facility] [address] [place] [phone] Shania Kaufman ANP from Last 3 Months Immunizations Immunization Administration Dates Next Due DTP 09/22/2007, 7,01/15/2006,08/07 DTaP 11/22/2009 HPV 9-Valent 03/24/2017,07/22/2016 Hep A, ped/adol, 2 dose 03/22/2008,09/22/2007 Hep B, Adolescent or Pediatric 09/16/2006,2005,2005 Hib (HbOC) 09/22/2007,01/15/2007,09/11/2006 IPV 11/22/2009,200 7,01/15/2006,08/07 Influenza injectable quadriv alent preservative free [...] 2025 , 04/11/2022, 07/23/2020, Additional history exists Depression Monitoring [...] CT PCR, Urine NOT DETECTED Not Detect. [facility] Comment:A not detected test result does [...] NG PCR, Urine NOT DETECTED Not Detect. [facility] Comment:A not detected test result does [...] 12:00 PM EDT 03/27/2025 5:46 PM EDT Ashley Escamilla [facility] URINE ORDERABLES Krista dean Result [facility] [address] [place] [address] [phone] * XR Foot 3+ Views Right (03/23/2025 4:06 PM EDT) Anatomical Region Laterality Modality Lower Extremities, Foot Right Radiogra phic Imaging 03/23/2025 4:06 PM EDT Narrative 03/23/2025 4:15 PM EDT [address] [address] XRay Report Signed Patient: Saran Gordon MR#: [id number] : 2005 Acct:[id number] Age/Sex: 20 / F ADM Date: 03/23/25 Loc: HO.HHCX Attending Dr: Lucia Rayo MD Ordering Physician: Lucia Rayo MD Date of Service: 03/23/25 Procedure(s): XR foot RT min 3V Accession Number(s): [id number] cc: Lucia Rayo MD Reason for Exam: [...] 03/23/25 1611 DD/ 1606 TD/TT: 03/23/25 1607 Quality Assurance Practice Manager: Procedure Note Donotuseinterpreter, Image - 03/23/[address] [address] XRay Report Signed Patient: Saran GordonMR#: [id number] : 2005Acct:[id number] Age/Sex: 20 / FADM Date: 03/23/25 Loc: HO.HHCX Attending Dr: Lucia Rayo MD Ordering Physician: Lucia Rayo MD Date of Service: 03/23/25 Procedure(s): XR foot RT min 3V Accession Number(s): [id number] cc: Lucia Rayo MD Reason for Exam: [...] 03/23/25 1611 DD/ 1606 TD/TT: 03/23/25 1607 Quality Assurance Practice Manager: Lucia Rayo MD IMG XR PROCEDURES Final Re sult from Last 3 Months Insurance ED01 C3 ED01 C3 Care Teams Procurement Representative Relationship Specialty Start Date End Date Shania Kaufman ANP [address] [place] [address] PCP - General Family Medicine 07/19/20
--- OUTSIDE RECORDS SUMMARY | 2025-04-26 17:42 | XMS_ITS | Encounter Summary ---
Author Organization [employer] Address [address] [place] [address] Care Team Providers Care Girl Friday Name Role Phone Shae Shania SUGGS Primary Care Provider [phone] Reason for Visit * Reason Onset Date Comments Med Refill 04/19/2024 Encounter Details Date Type Department Care Team (Late st Contact Info) Description 04/19/2024 Refill [facility] [address] [place] [address] Ashley Escamilla CN [address] [place] [address] Social History Tobacco Use Types Packs/Day Years [...] documented as of this encounter Care Teams Girl Friday Relationship Specialty Start Date End Date Shania Kaufman ANP [address] [place] [phone] PCP - General Family Medicine 07/19/20 documented as of this encounter
== END 2025-04-26 14:25 | disposition home or self-care (01) ==
LOC: HO.HPODS 13:57
PROVIDERS: Visit Provider Student in an Organized Health Care Education/Training Program
DX: M79.671 Pain in right foot (principal); S92.501A Displaced unspecified fracture of right lesser toe(s), initial encounter for closed fracture; S99.921A Unspecified injury of right foot, initial encounter
CPT/HCPCS: 99204

== ENCOUNTER → 2025-04-26 13:57 | Outpatient (BNVA) | payer MEDICAID, SELFPAY | PROVIDERS: Visit Provider Student in an Organized Health Care Education/Training Program | DX: S92.501A Displaced unspecified fracture of right lesser toe(s), initial encounter for closed fracture (principal); S99.921A Unspecified injury of right foot, initial encounter; M79.671 Pain in right foot | CPT/HCPCS: 99202 ==